=== PATIENT | female | born 1945 | race African-American/Black ===

== ENCOUNTER 2024-07-09 12:10 | Inpatient (IN) | payer OTHER ==
[2024-07-09 13:19] VITALS: BMI 19.7
[2024-07-09] MEDS ORDERED: ACETAMINOPHEN 325 MG TABLET (FP) PO PRN (13:34)
[2024-07-09] MEDS ORDERED: BENZONATATE 200 MG CAPSULE PO PRN (13:34)
[2024-07-09] MEDS ORDERED: guaiFENesin 600 MG TABLET.ER (FP) PO PRN (13:34)
[2024-07-09] MEDS ORDERED: IBUPROFEN 600 MG TABLET (FP) PO PRN (13:34)
[2024-07-09] MEDS ORDERED: BENZOCAINE/MENTHOL (CHLORASEPTIC ) LOZENGE MM PRN (13:34)
[2024-07-09] MEDS ORDERED: ONDANSETRON *ODT* 4 MG TABLET SL PRN (13:34)
[2024-07-09] MEDS ORDERED: BISMUTH SUBSALICYLATE 524 MG/30 ML PO PRN (13:34)
[2024-07-09] MEDS ORDERED: DICYCLOMINE HCL 10 MG CAPSULE PO PRN (13:34)
[2024-07-09] MEDS ORDERED: POLYETHYLENE GLYCOL (HEALTHYLAX) 3350 17 GM PACKET PO PRN (13:34)
[2024-07-09] MEDS ORDERED: NALOXONE (NARCAN) HCL 4 MG/0.1 ML SPRAY NS PRN (13:34)
[2024-07-09] MEDS ORDERED: IBUPROFEN 400 MG TABLET (FP) PO PRN (13:34)
[2024-07-09] MEDS ORDERED: MAGNESIUM HYDROX 2400MG/30ML ORAL SUSPENSION 30 ML CUP PO PRN (13:34)
[2024-07-09] MEDS ORDERED: LOPERAMIDE HCL 2 MG CAPSULE PO PRN (13:34)
[2024-07-09] MEDS ORDERED: MAG HYDROX/AL HYDROX/SIMETH 30 ML UNIT-DOSE CUP PO PRN (13:34)
[2024-07-09] MEDS ORDERED: hydrOXYzine PAMOATE 25 MG CAPSULE (FP) PO PRN (13:34)
[2024-07-09] MEDS ORDERED: BUPRENORPHINE HCL 150 MCG, BUPRENORPHINE HCL 75 MCG BC PRN (13:34)
[2024-07-09] MEDS ORDERED: ALBUTEROL SO4 HFA INHALER IH PRN (13:39)
[2024-07-09] MEDS: cloNIDine HCL 0.1 MG TABLET PO ONE ×2 (17:00→17:47)
[2024-07-09] MEDS: BUPRENORPHINE HCL 150 MCG, BUPRENORPHINE HCL 75 MCG BC ONE ×2 (17:45→17:51)
[2024-07-09] MEDS: METHOCARBAMOL 500 MG TABLET PO PRN (18:57)
[2024-07-09] MEDS: QUEtiapine FUMARATE 100 MG TABLET (FP) PO SCH (22:39)
[2024-07-09] MEDS: hydrALAZINE HCL 10 MG TABLET PO SCH (22:40)
[2024-07-09] MEDS: NIFEdipine E.R 60 MG TABLET PO SCH (22:40)
[2024-07-09] MEDS: MELATONIN 5 MG TABLETS PO SCH (22:41)
[2024-07-09] MEDS: THIAMINE 100 MG TABLET PO SCH (22:41)
[2024-07-09] MEDS: APIXABAN 2.5 MG TABLET PO SCH (22:42)
[2024-07-09] MEDS: FLECAINIDE ACETATE 50 MG TABLET PO SCH (23:37)
[2024-07-10] MEDS ORDERED: BUPRENORPHINE HCL 150 MCG, BUPRENORPHINE HCL 75 MCG BC PRN
[2024-07-10] MEDS: BUPRENORPHINE HCL 150 MCG, BUPRENORPHINE HCL 75 MCG BC SCH (06:09)
[2024-07-10 09:24] LABS: HEMATOCRIT 28.1 % (32.4-45.2); HEMOGLOBIN 9.4 GM/dL (10.7-15.3); MCH 31.3 pg (25.7-33.7); MCHC 33.5 g/dl (32.0-36.0); MEAN CELL VOLUME 93.5 fl (80-96); MEAN PLT VOLUME 8.1 fl (7.5-11.1); PLATELET COUNT 175 10^3/uL (134-434); RDW 13.3 % (11.6-15.6); WHITE BLOOD COUNT 3.8 K/mm3 (4.0-10.0)
[2024-07-10] MEDS ORDERED: ALBUTEROL SO4 HFA INHALER IH PRN (10:25)
[2024-07-10] MEDS: PRENATAL VITAMINS W/ FOLIC ACID TABLET (FP) PO SCH (10:40)
[2024-07-10] MEDS: FUROSEMIDE 20 MG TABLET (FP) PO SCH (10:40)
[2024-07-10 13:51] LABS: POTASSIUM 3.7 mmol/L (3.5-5.1)
[2024-07-10 13:54] LABS: ALBUMIN 4.1 g/dl (3.4-5.0); BLOOD UREA NITROGEN 75.4 mg/dL (7-18); CALCIUM 8.8 mg/dL (8.5-10.1)
[2024-07-10 13:59] LABS: BILIRUBIN,TOTAL 0.4 mg/dL (0.2-1); TOT PROT 7.5 g/dl (6.4-8.2)
[2024-07-10] MEDS: cloNIDine HCL 0.1 MG TABLET PO PRN (18:04)
[2024-07-10] MEDS: diazePAM 5 MG TABLET PO PRN (21:35)
[2024-07-11] MEDS: BUPRENORPHINE HCL 450 MCG FILM BC SCH (06:15)
[2024-07-11] MEDS: diazePAM 5 MG TABLET PO PRN (18:47)
[2024-07-11] MEDS: cloNIDine HCL 0.1 MG TABLET PO PRN (18:47)
[2024-07-12] MEDS ORDERED: BUPRENORPHINE/NALOXONE 4 MG/1 MG FILM PACKET SL SCH (06:00)
[2024-07-12] MEDS: methaDONE HCL 10 MG TABLET (FOR DETOX USE ONLY) PO ONE (09:27)
[2024-07-12 09:51] LABS: POTASSIUM 3.7 mmol/L (3.5-5.1)
[2024-07-12 10:03] LABS: IRON SERUM 51 ug/dL (50-175)
[2024-07-12 10:07] LABS: ALBUMIN 3.4 g/dl (3.4-5.0); BLOOD UREA NITROGEN 47.2 mg/dL (7-18)
[2024-07-12 10:09] LABS: TOTAL IRON BINDING CAPACITY 265 ug/dL (250-450)
[2024-07-12 10:10] LABS: CREATININE 3.7 mg/dL (0.55-1.3)
[2024-07-12] MEDS: cloNIDine HCL 0.1 MG TABLET PO SCH (23:00)
[2024-07-13] MEDS ORDERED: BUPRENORPHINE/NALOXONE 8 MG/2 MG FILM PACKET SL ONE (06:00)
[2024-07-13 11:17] VITALS: BP 155/93; PULSE 81; RESP 18; TEMP 98.7
== END 2024-07-13 10:00 | disposition home or self-care (01) | DRG 897 ==
LOC: YASAS 12:10 → Y6N 15:15
PROVIDERS: ADMIT Allergy & Immunology; ATTEND Allergy & Immunology
PROC: HZ2ZZZZ Detoxification Services for Substance Abuse Treatment (ICD-10-PCS; principal; 2024-07-09)
DX: F11.23 Opioid dependence with withdrawal (principal); Z68.1 Body mass index [BMI] 19.9 or less, adult; D50.9 Iron deficiency anemia, unspecified; G47.00 Insomnia, unspecified; I10 Essential (primary) hypertension; I48.91 Unspecified atrial fibrillation; J45.909 Unspecified asthma, uncomplicated; M19.90 Unspecified osteoarthritis, unspecified site; R63.6 Underweight; Z87.891 Personal history of nicotine dependence; Z79.01 Long term (current) use of anticoagulants; Z86.19 Personal history of other infectious and parasitic diseases; Z99.89 Dependence on other enabling machines and devices
CPT/HCPCS: 36415; 71045-TC-FY; 80053; 80069; 80305; 80307; 82607; 82728; 82747; 83540; 83550; 84484; 85014; 85027; 86780; 93005; 93010